=== PATIENT | male | born 1945 | race Caucasian/White ===

== ENCOUNTER 2017-07-08 17:38 | Inpatient (IN) | payer MEDICARE ==
[~2017-07-08] VITALS: Ht 171.4 cm; Wt 86.2 kg
--- NOTE | 2017-07-08 18:07 | Diagnostic Imaging Report ---
PROCEDURE: A single AP view of the chest. COMPARISON: None. INDICATIONS: LEFT SIDE NUMBNESS AND WEAKNESS FINDINGS: Examination is limited by relatively lordotic projection. Lines/tubes: None. Lungs: The lungs are well inflated and clear. There is no evidence of pneumonia or pulmonary edema. Pleura: There is no pleural effusion or pneumothorax. Heart and mediastinum: Mild cardiomegaly. Evidence of prior CABG Bones: No acute bony abnormality. Cervical fusion hardware is visualized. IMPRESSION: Mild cardiomegaly. No evidence of infection or edema. Dictated by: Julius Fong M.D. on 07/08/2017 at 18:07 Electronically approved by: Julius Fong M.D. on 07/08/2017 at 18:07
--- NOTE | 2017-07-08 18:11 | Diagnostic Imaging Report ---
EXAMINATION: Head CT HISTORY: Left-sided numbness and weakness, evaluate for stroke. COMPARISON: None. TECHNIQUE: Multidetector axial images were obtained without contrast from the foramen magnum to the vertex . The images were reconstructed using brain and bone algorithms. Thin section brain images were reformatted into coronal and sagittal planes. Intravenous contrast: None. Motion/streaking artifact limits the evaluation of the skull base and posterior cranial fossa. FINDINGS: Parenchyma: 1. Few scattered and mostly bilateral frontal juxtacortical white matter hypodensities, most likely nonspecific chronic microvascular ischemic changes. 2. No mass or hemorrhage. No CT evidence of acute territorial vascular insult. Extra-axial spaces:No abnormal density. No extra-axial fluid collections Brain volume: Normal for age. Ventricles: No hydrocephalus or displacement. Arteries: No density suggestive of thrombus. Dural sinuses: No abnormal density. Extra-axial spaces: No abnormal density. Foramen magnum: No mass, Chiari malformation, or basilar invagination. Sella: No obvious mass. Paranasal/mastoid sinuses: Imaged portions unremarkable. Skull/Scalp: No lytic or blastic lesions. No fractures. IMPRESSION: 1. No intracranial hemorrhage or CT evidence of acute territorial cortical infarct. 2. Mild chronic microvascular ischemic changes. Signed by: Dr. Lauryn Mckeon M.D. on 07/08/2017 6:07 PM
[2017-07-08 18:18] LABS: BASOPHILS # (AUTO) 0.1 (0.0-0.1); BASOPHILS % 0.7 % (0.0-1.0); EOSINOPHILS # (AUTO) 0.2 (0.0-0.4); HEMATOCRIT 37.9 % (38.2-49.6); HEMOGLOBIN 13.2 g/dL (14.0-18.0); LYMPHOCYTES # (AUTO) 1.4 (1.0-3.2); MEAN CORPUSCULAR HGB CONC 34.8 g/dL (31-35); MONOCYTES # (AUTO) 0.9 (0.2-0.8); MONOCYTES % 10.5 % (4.4-11.3); NEUTROPHILS # (AUTO) 5.5 (2.1-6.9); NEUTROPHILS % 68.4 % (38.7-80.0); PLATELET COUNT 170 x10e3/uL (140-360); RED BLOOD COUNT 4.26 x10e6/uL (4.3-5.7); RED CELL DISTRIBUTION WIDTH 12.6 % (11.7-14.4)
[2017-07-08 18:27] LABS: INR 0.94; PROTHROMBIN TIME 11.8 seconds (11.9-14.5)
[2017-07-08 18:28] LABS: PARTIAL THROMBOPLASTIN TIME 26.9 seconds (23.8-35.5)
[2017-07-08 18:35] LABS: ALANINE AMINOTRANSFERASE 38 IU/L (0-55); ALBUMIN 4.1 g/dL (3.5-5.0); ALBUMIN/GLOBULIN RATIO 1.4 (0.8-2.0); ALKALINE PHOSPHATASE 32 IU/L (40-150); ANION GAP 16.1 mmol/L (8-16); BLOOD UREA NITROGEN 21 mg/dL (7-26); BUN/CREATININE RATIO 18 (6-25); CALCIUM 10.5 mg/dL (8.4-10.2); CARBON DIOXIDE 25 mmol/L (22-29); CHLORIDE 100 mmol/L (98-107); CREATINE KINASE 176 IU/L (30-200); CREATININE, SERUM 1.14 mg/dL (0.72-1.25); EST GLOMERULAR FILTRATION RATE > 60 ML/MIN (60-); GLUCOSE 138 mg/dL (74-118); MAGNESIUM 1.2 MG/DL (1.3-2.1); POTASSIUM 4.1 mmol/L (3.5-5.1); SODIUM 137 mmol/L (136-145)
[2017-07-08] MEDS ORDERED: MAGNESIUM SULFATE 2GM/50ML 50 ML IV ONE (19:15)
[2017-07-08] MEDS ORDERED: DEXTROSE 50% SYRINGE 50 ML IV PRN (19:45)
[2017-07-08] MEDS ORDERED: FAMOTIDINE 20 MG/2 ML VIAL IV SCH (19:45)
[2017-07-08] MEDS ORDERED: SODIUM CHLORIDE 0.9% 500ML 500 ML IV ONE (19:45)
--- OUTSIDE RECORDS SUMMARY | 2017-07-08 19:52 | XMS REPORT ---
Author Author [facility] Address Unknown Phone Unavailable Care Team Providers Care Data Management Engineer Name Role Phone NATALEE SEGOVIA Unavailable Unavailable Problems This patient has no known problems. Allergies, Adverse Reactions, Alerts This patient has no known allergies or adverse reactions. Medications This patient has no known medications. Results Test Description Test Time Test Comments Text Results Atomic Results Result Comments CHEST SINGLE (PORTABLE) [place] [address] Patient Name: THOMPSON CHINCHILLA MR #: [id number] : 1945 Age/Sex: 72/M Req #: [id number] Adm Physician: Ordered by: NATALEE SEGOVIA MD Report #: [id number] Location: ER Room/Bed: Procedure: [id number] DX/CHEST SINGLE (PORTABLE) Exam Date: 07/08/17 Exam Time: 1750 REPORT STATUS: Signed PROCEDURE: A single AP view of the chest. COMPARISON: None. INDICATIONS: LEFT SIDE NUMBNESS AND WEAKNESS FINDINGS: Examination is limited by relatively lordotic projection. Lines/tubes: None. Lungs: The lungs are well inflated and clear. There is no evidence of pneumonia or pulmonary edema. Pleura: There is no pleural effusion or pneumothorax. Heart and mediastinum: Mild cardiomegaly. Evidence of prior CABG Bones: No acute bony abnormality. Cervical fusion hardware is visualized. IMPRESSION: Mild cardiomegaly. No evidence of infection or edema. Dictated by: David Fong M.D. on 07/08/2017 at 18:07 Electronically approved by: David Fong M.D. on 07/08/2017 at 18:07 Dictated By: DAVID FONG MD 07 Transcribed By: ANIL on 07/08/171807 COPY TO: NATALEE SEGOVIA MD CT BRAIN WO [place] [address] Patient Name: THOMPSON CHINCHILLA MR #: [id number] : 1945 Age/Sex: 72/M Req # : [id number] Adm Physician: Ordered by: NATALEE SEGOVIA MD Report #: [id number] Location: ER Room/Bed: Procedure: [id number] CT/CT BRAIN WO Exam Date: 07/08/17 Exam Time: 1756 REPORT STATUS: Signed EXAMINATION: Head CT HISTORY: Left-sided numbness and weakness, evaluate for stroke. COMPARISON: None. TECHNIQUE: Multidetector axial images were obtained without contrast from the foramen magnum to the vertex . The images were reconstructed using brain and bone algorithms. Thin section brain images were reformatted into coronal and sagittal planes. Intravenous contrast: None. Motion/streaking artifact limits the evaluation of the skull base and posterior cranial fossa. FINDINGS: Parenchyma: 1. Few scattered and mostly bilateral frontal juxtacortical white matter hypodensities, most likely nonspecific chronic microvascular ischemic changes. 2. No mass or hemorrhage. No CT evidence of acute territorial vascular insult. Extra-axial spaces:No abnormal density. No extra-axial fluid collections Brain volume: Normal for age. Ventricles: No hydrocephalus or displacement. Arteries: No density suggestive of thrombus. Dural sinuses: No abnormal density. Extra-axial spaces: No abnormal density. Foramen magnum: No mass, Chiari malformation, or basilar invagination. Sella: No obvious mass. Paranasal/mastoid sinuses: Imaged portions unremarkable. Skull/Scalp: No lytic or blastic lesions. No fractures. IMPRESSION: 1. No intracranial hemorrhage or CT evidence of acute territorial cortical infarct. 2. Mild chronic microvascular ischemic changes. Signed by: Dr. Manny Mckeon M.D. on 07/08/2017 6:07 PM Dictated By: MANNY MCKEON MD 06 COPY TO: NATALEE SEGOVIA MD
[2017-07-08 20:00] VITALS: BP 130/62
[2017-07-08] MEDS ORDERED: ENOXAPARIN 30 MG/0.3 ML SYR SC ONE (20:30)
[2017-07-08] MEDS: FAMOTIDINE 20 MG TAB PO SCH (20:32)
[2017-07-08] MEDS: INSULIN REGULAR, HUMAN 100 UNIT/1 ML 3ML VIAL SQ SCH (20:32)
[2017-07-08] MEDS: SODIUM CHLORIDE 0.9% 1000ML 1,000 ML IV SCH ×2 (20:32→22:52)
--- NOTE | 2017-07-08 20:37 | History and Physical ---
Patient states he was experiencing left anterior parasternal pain, which was exacerbated by pressure to the chest wall. He took nitroglycerin. He states associated with these symptoms was left-sided weakness and paresthesias and slurred speech. He came to the emergency room and underwent CT, which revealed some old frontal changes without acute stroke. Symptoms resolved spontaneously in the emergency room, and he is being hospitalized for further observation. The patient denies headache now. He states he had mild headache earlier today after taking nitroglycerin. No current ophthalmological symptoms. He has had prior retinal and lens surgery on the right side. No dysphagia. Speech is clear now per patient. He has chronic neck discomfort with history of old prior C-spine surgery. Denies now chest pain or shortness of breath. History includes severe atherosclerosis with prior coronary artery bypass. He sees Dr. Ayala. History is positive for hyperlipoproteinemia and chronic obesity as well as diabetes mellitus type 2. The patient denies nausea or diaphoresis. No shortness of breath. No GI symptoms. He has a history of BPH and denies current symptoms. The patient has chronic lower back pain. Hyperlipoproteinemia as mentioned. Isivw-na-[id number] meds on most recent visit included :Lexapro 20 mg daily. Klonopin 0.25 mg q.i.d. for chronic anxiety. Metformin 250 mg each morning and 500 mg each evening. Toprol-XL 25 mg daily. Zetia 10 mg daily. Fenofibrate 145 mg daily. Lisinopril 5 mg daily. Lipitor. The patient states the doses vary and that he is uncertain and the medicine has been on hold recently, but last dose was 20 mg daily and LDL 1 year ago was 74, which is too high for this heterogenic patient. The patient also takes aspirin daily. PATIENT STATES HE HAS SEVERE ALLERGIC REACTION TO MORPHINE WITH THROAT TIGHTENING AND SHORTNESS OF BREATH, SEVERE. Surgical history as above. Cervical spine. Coronary artery bypass. Right shoulder. Lumbosacral spine. Vasectomy. Colonoscopy 1998. Bilateral knee joint surgery. Right retina, right lens surgery. Family history is not contributory. CURRENT EXAMINATION: The patient is alert and in no distress. Blood pressure 120/80, pulse is 80 and regular, respiratory rate 16. Pupils round, reactive. EOMs full. No icterus or pallor. Throat clear. Tongue midline. Cranial nerves grossly intact. Pulmonary auscultation clear. Reduced range of motion C-spine and lumbosacral spine and lumbar scar. Abdomen obese. Cardiac sounds S1/S2 soft. Bowel sounds normal. Breath sounds clear. Extremities with dampened pulses and DJD. Strength fair and symmetrical. DTRs reduced. Sensation intact. IMPRESSION: Transient ischemic episode. Rule out associated arrhythmia. Coronary artery disease. Cardiomegaly on chest x-ray, mild. Chronic mood disorder with chronic anxiety. Type 2 diabetes mellitus. Hypertension. Hypertriglyceridemia. Initial calcium level was elevated. See EMR. Case discussed with ER physician. Current plans are to monitor the patient. Control lipids and blood pressure and blood sugar. Further assess vascular status. I have asked the patient's smoking tobacco packing machine hand and neurologist to follow with us. See also initial and followup orders. Job#: [id number] EV
[2017-07-08] MEDS: CLONAZEPAM 0.5 MG TAB PO SCH (20:46)
[2017-07-08 22:10] VITALS: BP 130/58
[2017-07-08 22:15] VITALS: BP 130/60
[2017-07-08 22:52] VITALS: BP 130/58
[2017-07-09] VITALS: BP 130/60
[2017-07-09 03:49] LABS: CREATINE KINASE MB 2.7 ng/mL (0-5.0)
[2017-07-09 04:00] VITALS: BP 143/63
[2017-07-09 07:26] LABS: BASOPHILS % 0.7 % (0.0-1.0); EOSINOPHILS # (AUTO) 0.2 (0.0-0.4); EOSINOPHILS % 5.4 % (0.0-6.0); HEMATOCRIT 35.6 % (38.2-49.6); HEMOGLOBIN 12.3 g/dL (14.0-18.0); LYMPHOCYTES % 22.5 % (18.0-39.1); MEAN CORPUSCULAR HEMOGLOBIN 31.6 pg (28-32); MEAN CORPUSCULAR HGB CONC 34.6 g/dL (31-35); MEAN CORPUSCULAR VOLUME 91.5 fL (81-99); MONOCYTES # (AUTO) 0.5 (0.2-0.8); MONOCYTES % 12.1 % (4.4-11.3); NEUTROPHILS # (AUTO) 2.7 (2.1-6.9); NEUTROPHILS % 59.1 % (38.7-80.0); PLATELET COUNT 123 x10e3/uL (140-360); RED BLOOD COUNT 3.89 x10e6/uL (4.3-5.7); RED CELL DISTRIBUTION WIDTH 12.6 % (11.7-14.4)
[2017-07-09] MEDS: INSULIN REGULAR, HUMAN 100 UNIT/1 ML 3ML VIAL SQ SCH ×4 (07:30→20:17)
[2017-07-09 07:37] VITALS: BP 150/67
[2017-07-09 07:49] LABS: CREATINE KINASE MB 2.9 ng/mL (0-5.0)
[2017-07-09 08:04] LABS: ALANINE AMINOTRANSFERASE 33 IU/L (0-55); ALBUMIN 3.6 g/dL (3.5-5.0); ALBUMIN/GLOBULIN RATIO 1.3 (0.8-2.0); ALKALINE PHOSPHATASE 31 IU/L (40-150); ANION GAP 12.4 mmol/L (8-16); BLOOD UREA NITROGEN 17 mg/dL (7-26); BUN/CREATININE RATIO 17 (6-25); CALCIUM 9.1 mg/dL (8.4-10.2); CARBON DIOXIDE 27 mmol/L (22-29); CHLORIDE 105 mmol/L (98-107); CHOL/HDL RATIO 5.3 (3.9-4.7); CHOLESTEROL 132 MD/DL (0-199); CREATININE, SERUM 1.03 mg/dL (0.72-1.25); EST GLOMERULAR FILTRATION RATE > 60 ML/MIN (60-); GLUCOSE 133 mg/dL (74-118); HDL CHOLESTEROL 25 MG/DL (40-60); LDL CHOLESTEROL 35 MG/DL (60-130); MAGNESIUM 1.5 MG/DL (1.3-2.1); POTASSIUM 4.4 mmol/L (3.5-5.1); SODIUM 140 mmol/L (136-145); TRIGLYCERIDES 358 MG/DL (0-149)
[2017-07-09] MEDS: CITALOPRAM HYDROBROMIDE 20 MG TAB PO SCH (09:00)
[2017-07-09] MEDS: EZETIMIBE 10 MG TAB PO SCH (09:00)
[2017-07-09] MEDS: LISINOPRIL 2.5 MG TAB PO SCH (09:00)
[2017-07-09] MEDS: FAMOTIDINE 20 MG TAB PO SCH (09:00)
[2017-07-09] MEDS: CLONAZEPAM 0.5 MG TAB PO SCH ×4 (09:00→20:31)
[2017-07-09] MEDS: ASPIRIN 325 MG TAB EC PO SCH (09:00)
[2017-07-09] MEDS: FENOFIBRATE 145 MG TAB PO SCH (09:00)
[2017-07-09 12:10] VITALS: BP 150/67
--- NOTE | 2017-07-09 12:19 | Cardiology Report ---
DATE OF STUDY: July 08, 2017 ECHOCARDIOGRAM M-MODE: Dilated left atrium. Left ventricular hypertrophy. Diminished left ventricular contractility, especially at inferior wall. Normal mitral aortic valves. No pericardial effusion. SECTOR SCAN: Dilated left atrium. Left ventricular hypertrophy. Diminished left ventricular contractility, especially the inferior wall. Ejection fraction is approximately 35% to 40%. Mitral, aortic and tricuspid valves are grossly normal. There is no pericardial effusion. CARDIAC DOPPLER STUDY WITH COLOR: There is 1+ to 2+ aortic regurgitation, 1+ mitral regurgitation. Trace tricuspid regurgitation. CONCLUSIONS: 1. Inferior hypokinesis suggestive of ischemic heart disease. 2. Left ventricular hypertrophy with ejection fraction 35% to 40%. 3. Mild to moderate aortic regurgitation. 4. Mild mitral regurgitation with dilated left atrium. 5. Trace tricuspid regurgitation. Job#: [id number] GH cc:MACY RODRIGUEZ MD
--- NOTE | 2017-07-09 12:23 | Cardiology Report ---
DATE OF STUDY: July 08, 2017 DOPPLER SCAN OF THE CAROTID The left and right carotid arteries were interrogated using Duplex scanning method. The left carotid artery showed velocity of 2.1 meters per second involving the distal left internal carotid artery. Left vertebral flow appears to be antegrade. Right carotid artery shows mild intimal thickening and plaquing without high-grade stenosis or flow impairment. Right vertebral flow appears to be antegrade. CONCLUSIONS: 1. Moderately high-grade stenosis involving the distal left internal carotid artery with velocity of 2.1 meters per second consistent with stenosis in the range of 70% to 80%. 2. Mild intimal thickening and plaquing bilaterally with moderate plaques noted in the right internal carotid artery. 3. Vertebral flow appears to be in normal direction bilaterally. Job#: [id number] GH cc:MACY RODRIGUEZ MD
--- NOTE | 2017-07-09 12:28 | Diagnostic Imaging Report ---
History: Left arm numbness, left face double vision. Comparison studies: Head CT 07/08/17 Technique: Sagittal T2; axial DWI, FLAIR, MPGR, T1, Coronal FLAIR. Intravenous contrast: None Findings: Scalp: Normal in signal . No masses . Bone marrow: Normal in signal intensity. Extra-axial: No masses or fluid collections. Brain sulci: Appropriate for age. Ventricles: Normal in size . No hydrocephalus . Parenchyma: Mild confluent and scattered foci of T2 FLAIR hyperintensity in the periventricular, deep and subcortical cerebral white matter are mild chronic small vessel ischemic changes. No masses, hemorrhage, acute or chronic cortical ischemic insults. Suprasellar region: No abnormalities. Craniocervical junction: No abnormalities. Patent foramen magnum. No Chiari one malformation. Vessels: Normal flow-voids in the arteries and sinuses. IMPRESSION: 1. No acute intracranial abnormality. No acute infarct, intracranial hemorrhage or mass effect. 2. Mild chronic small vessel ischemic changes. Preliminary report was provided by neuroradiology fellow, Dr.Thach Chanel MD on 07/09/2017 12:27 PM. The preliminary report was reviewed and a final report issued by Dr. Mckeon neuroradiologist on 07/09/2017 at 4:41 PM Signed by: Dr. Lauryn Mckeon M.D. on 07/09/2017 4:42 PM
--- NOTE | 2017-07-09 12:40 | Diagnostic Imaging Report ---
History: Left arm numbness, left face numbness, double vision. Comparison studies: None Technique: 3-D [id number] intracranial. Contrast: None Findings: Percentage of stenosis will be based on the NASCET criteria. Internal carotid arteries: No flow abnormalities. Vertebral arteries: No flow abnormalities in the visualized intracranial segments. Basilar artery: No flow abnormalities. Posterior cerebral arteries: No flow abnormalities. Anatomical variants: Acom: Visualized. Pcoms: Not visualized. Vertebral arteries: Right vertebral artery is dominant and supplies the majority of flow to the basilar artery. 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 IMPRESSION: Normal MR angiogram of the head. Preliminary report was provided by neuroradiology fellow, Dr.Thach Chanel MD on 07/09/2017 12:39 PM. The preliminary report was reviewed and a final report issued by Dr. Mckeon neuroradiologist on 07/09/2017 at 4:50 PM Signed by: Dr. Lauryn Mckeon M.D. on 07/09/2017 4:49 PM
--- NOTE | 2017-07-09 12:58 | Diagnostic Imaging Report ---
History: Left side weakness. Comparison studies: Carotid ultrasound 07/09/2017 Technique: 2-D mpfy-fj-cfenup cervical. Contrast: None Findings: Aortic arch/origins of the great vessels: Cannot be evaluated in this unenhanced study. Common carotid arteries: Origins obscured by artifacts. No gross flow abnormalities . Right carotid bulb: No flow abnormalities. Left carotid bulb: No flow abnormalities. Internal carotid arteries: No flow abnormality in the right ICA. Apparent focal high-grade stenosis in the proximal left internal carotid artery immediately distal to the origin seen on the MIPS images is most likely related to flow artifact secondary to vessel tortuosity. Remaining segments of the distal left cervical ICA have normal flow related signal. Vertebral arteries: Origins obscured by artifacts. No gross flow abnormalities. Right vertebral artery is dominant. IMPRESSION: Apparent focal high-grade stenosis in the left carotid bulb seen on the MIPS reconstruction is most likely flow related artifact secondary to vessel tortuosity and horizontal orientation. No abnormal velocity is seen in this region on the recent carotid ultrasound to suggest true hemodynamically significant stenosis. Otherwise, normal cervical MRA. Preliminary report was provided by neuroradiology fellow, Dr.Thach Chanel MD on 07/09/2017 12:57 PM. Signed by: Dr. Lauryn Mckeon M.D. on 07/09/2017 4:36 PM
[2017-07-09 16:01] VITALS: BP 132/62
--- NOTE | 2017-07-09 16:38 | Consultation ---
DATE OF CONSULTATION: CARDIOLOGY CONSULTATION ATTENDING PHYSICIAN: Dr. Macy Rodriguez. CLINICAL HISTORY: This is a 72-year-old white man with multiple medical problems, known to our service from previous evaluations by Dr. Howard Ayala, kindly referred by Dr. Macy Rodriguez for cardiovascular evaluation in the setting of chest wall tenderness, new TIA with transient left-sided weakness including the left face. This patient suffers from diabetes, hypertension, hyperlipidemia. In 1994 he had an acute myocardial infarction. In 1996 he underwent bypass surgery. He also has a history of spinal cord disease including a previous surgery on the C-spine in 2007 and previous lumbar surgery. Approximately 5 years ago, he presented with right-sided weakness and aphasia, which has mostly recovered but with persistent right foot numbness. He has been followed by Dr. Dale Quintanilla at that time. He had a cardiac catheterization approximately 6 years ago by his verbal report, and the nuclear stress test 2 years ago apparently not finding any significant disease. On the day of admission, he felt left-sided chest pain and tenderness, took nitroglycerin spray. His symptoms resolved in 5 minutes. Subsequently, he had a transient ischemic attack with left-sided weakness, dysarthria that resolved in [address] scan and MRI scan failed to show any acute changes. Echocardiogram showed ejection fraction of 35% to 40% with inferior wall hypokinesis, dilated left atrium, and Doppler scan of the carotids showed velocity of 2.1 meters per second in the distal left internal carotid artery. PAST MEDICAL HISTORY: Remarkable for the above-mentioned surgeries. Additionally, he has had vasectomy, colonoscopy, bilateral knee surgery, right retinal surgery, right lens surgery. MEDICATIONS AT HOME: Include 1. Metformin 250 mg b.i.d. 2. Toprol-XL 25 mg p.o. daily. 3. Zetia 10 mg p.o. daily. 4. Fenofibrate 145 mg daily. 5. Lisinopril 5 mg daily. 6. Lipitor daily. FAMILY HISTORY: Noncontributory. REVIEW OF SYSTEMS: Negative. PHYSICAL EXAMINATION GENERAL: He is alert, coherent. Appears to be comfortable without any obvious deficits. He is poor of hearing. VITAL SIGNS: Stable. CARDIAC: Jugular veins are not distended. S1 and S2 are regular. There are no appreciable murmurs. LUNGS: Clear. ABDOMEN: Soft. Bowel sounds are present. EXTREMITIES: Show no cyanosis, clubbing or edema. NEUROLOGIC: He is able to walk without any obvious deficits. IMPRESSION 1. Transient ischemic attack with left-sided weakness including left face, resolved after 45 minutes. Since he has had previous stroke 5 years ago involving the opposite side, I suspect his condition may be embolic rather than related to carotid artery disease. In any case, the left carotid artery stenosis is on the wrong side. 2. Approximately 70% to 80% stenosis involving the left internal carotid artery with velocity 2.1 meters per second. 3. Previous cerebrovascular accident involving the left hemisphere with right-sided weakness and aphasia with residual right foot numbness. 4. History of cervical spine surgery 2007. 5. History of lumbar surgery. 6. History of myocardial infarction probably of the inferior wall in 1994. 7. History of bypass surgery in 1996. 8. Diabetes. 9. Hypertension. 10. Hyperlipidemia. 11. Depression, on Lexapro. RECOMMENDATION: Review old records. Neurology evaluation. Consider MRA of the head. Consider transesophageal echocardiogram. Consider anticoagulation. Job#: [id number] EV cc:MACY RODRIGUEZ MD
[2017-07-09] MEDS: SODIUM CHLORIDE 0.9% 1000ML 1,000 ML IV SCH ×2 (18:15→20:32)
[2017-07-09 20:00] VITALS: BP 134/62
[2017-07-09] MEDS: ENOXAPARIN SOD INJ 60 MG/0.6 ML SYR SC SCH (20:31)
--- NOTE | 2017-07-09 21:27 | Consultation ---
DATE OF CONSULTATION: July 09, 2017 NEUROLOGY CONSULTATION HISTORY OF PRESENT ILLNESS: Mr. Begum is a 72-year-old sdyqg-foed-slxjpkqy man with past medical history significant for hyperlipidemia, diabetes mellitus, coronary artery disease, possible atrial fibrillation with rapid ventricular response, and 2 prior transient ischemic attacks, admitted to [facility] on July 08, 2017, following a transient ischemic attack. On the day of admission, the patient was sitting in his recliner, reading a book, when he experienced the sudden onset of left facial droop, left hemiparesis, left hemihypesthesia, gait impairment, and dizziness which is further described as lightheadedness. The patient's , who witnessed the onset of these symptoms, wanted to call --1, but her refused. Therefore, the patient's placed Mr. Begum in her car and drove him to the emergency center at [facility] for further evaluation and treatment. While in the emergency center, the patient's symptoms gradually improved. Mr. Begum and his report the symptoms fully resolved within 60 to 90 minutes after the time of onset. A CT of the brain without contrast performed while the patient was in the emergency center did not reveal large territorial ischemia, hemorrhage, mass, or mass effect. Mr. Begum was admitted to the hospital for further evaluation and treatment of his symptoms. As stated above, the patient has experienced at least 2 previous transient ischemic attacks. One of these transient ischemic attacks was characterized by aphasia. Mr. Begum reports taking aspirin 81 mg by mouth daily prior to this admission. REVIEW OF SYSTEMS: Abdominal pain, blurred vision affecting the left eye, facial weakness and numbness, weakness of the left arm and leg, numbness of the left arm and leg, and impaired gait. Otherwise, the 12-point review of systems is negative. PAST MEDICAL HISTORY: Hyperlipidemia, diabetes mellitus, coronary artery disease, prior heart attack, possible atrial fibrillation with rapid ventricular response, 2 transient ischemic attacks, skin cancer. PAST SURGICAL HISTORY: Four-vessel CABG in 1996, cervical and lumbar fusions, cardiac stent placement, bilateral partial knee replacements, bilateral shoulder reconstructions, 6 eye surgeries, resection of basal cell carcinoma. PAST HOSPITALIZATIONS: Surgeries and procedures listed, heart attack, cardiac catheterizations, transient ischemic attacks twice, chest pain, upper respiratory infection, and heat stroke. FAMILY HISTORY: Mr. Begum's paternal and maternal grandparents are . Their medical histories are unknown. The patient's father is from coronary artery disease. A paternal aunt had diabetes mellitus. A paternal uncle had coronary artery disease. A 2nd paternal aunt had an unknown cancer. The patient's mother is , cause unknown. The patient has 1 sibling, a sister, who is alive. She has celiac disease and lactose intolerance. The patient has 2 children. One son in his sleep. It is suspected the patient's son from a seizure caused by medication interaction. The patient has a 2nd son who is alive and healthy. SOCIAL HISTORY: The patient is . He is retired. Mr. Begum quit smoking in 1994. He drinks an occasional beer or glass of wine. There is no reported current or prior recreational drug use. HOME MEDICATIONS: Lexapro 20 mg by mouth daily, Klonopin 0.25 mg by mouth 4 times daily for chronic anxiety, metformin 250 mg in the morning and 500 mg in the evening, Toprol-XL 25 mg daily, Zetia 10 mg daily, fenofibrate 145 mg daily, lisinopril 5 mg daily, and Lipitor 20 mg by mouth daily. ALLERGIES: MORPHINE CAUSES ANAPHYLAXIS. PENICILLIN CAUSES A RASH. TAPE ADHESIVE. NO KNOWN FOOD ALLERGIES. NO KNOWN ALLERGIES TO LATEX. NO KNOWN ALLERGIES TO IODINE OR OTHER CONTRAST MATERIALS. PHYSICAL EXAMINATION VITAL SIGNS: Height 67.5 inches, weight 190.1 pounds, BMI 29.3 kg per meter squared. Blood pressure 150/67 mmHg, pulse 58 beats per minute, respiratory rate 18 breaths per minute, oxygen saturation 94% on room air. GENERAL: The patient is awake and alert, does not appear distressed. Overweight. HEENT: Normocephalic, atraumatic. Pupils are surgical. Moist mucous membranes. NECK: Supple. No appreciable thyromegaly. No appreciable carotid bruits. CARDIOVASCULAR: S1, S2, regular rate and rhythm. No murmurs, rubs, or gallops. RESPIRATORY: Clear to auscultation bilaterally. No wheezes, rhonchi, or rales. EXTREMITIES: The skin is warm and dry. No clubbing, cyanosis, or edema. The posterior tibial and dorsalis pedis pulses are 1+ and symmetric. SKIN: No rashes or lesions. NEUROLOGIC MEMORY/ATTENTION: The patient is awake and alert, oriented to person, place, time, and situation. CRANIAL NERVES: Cranial nerve 1--Not tested. Cranial nerve 2, 3, 4, and 6--Pupils are surgical, extraocular movements intact, no nystagmus. Cranial nerve 5--Sensation to light touch and pinprick is intact in the bilateral V1 through V3 distributions. Strength of the temporalis and masseter muscles is within normal limits. Cranial nerve 7--The face is symmetric, as are all facial movements. Strength is within normal limits. Cranial nerve 8--Hearing is diminished to finger rub bilaterally. Cranial nerve 9, 10--The soft palate elevates equally and symmetrically. Cranial nerve 11--Normal strength of the bilateral sternocleidomastoid and trapezius muscles. Cranial nerve 12--The tongue protrudes midline and moves symmetrically from side to side. STRENGTH: Bulk is normal, and strength is 5/5 in the bilateral deltoids, biceps, triceps, wrist flexors and extensors, finger flexors and extensors, intrinsic hand muscles, hip flexors, knee flexors and extensors, ankle dorsiflexion and plantarflexion, and intrinsic foot muscles. Tone is normal. DTRS: Deep tendon reflexes are 2+ and symmetric at the triceps, biceps, brachial radialis, and patellas. Deep tendon reflexes are absent and symmetric at the Achilles. Plantar responses are flexor bilaterally. Absent clonus. SENSATION: Patchy sensory loss to light touch and pinprick over the legs. CEREBELLAR: Gwfbgr-beii-lstrif and heel-garrison movements are intact without dysmetria or other impairment. Rapid alternating movements are intact. GAIT: Deferred. SPEECH: Spontaneous speech is normal without appreciable dysarthria or aphasia. Repetition is intact. INVOLUNTARY MOVEMENTS: None. PRONATOR DRIFT: None. LABORATORY DATA: Sodium 140, potassium 4.4, chloride 105, carbon dioxide 27, anion gap 12.4, BUN 17, creatinine 1.03, estimated GFR greater than 60, TAG-ci-ajyszrstix ratio 17, glucose 133, calcium 9.1, magnesium 1.5. Total bilirubin 0.3, AST 25, ALT 33, alkaline phosphatase 31. Total protein 6.3, albumin 3.6, globulin 2.7, wgqlato-bc-wcfhtbmy ratio 1.3. Creatine kinase 176, 133, 130. CK-MB 3.50, 2.70, 2.90. Troponin I less than 0.001, 0.007, 0.005. TSH 2.470. B-natriuretic peptide 38.3, 39.4. Total cholesterol 132, triglycerides 358, LDL 35, HDL 25. CBC with differential and platelets reveals a white blood cell count of 4.48 with 59.1% neutrophils, 22.5% lymphocytes, 12.1% monocytes, 5.4% eosinophils, 0.7% basophils. PT 11.8, INR 0.94, PTT 26.9. DIAGNOSTIC STUDIES EKG July 08, 2017: Normal sinus rhythm at [address] of the brain without contrast July 08, 2017: On my review, there is no evidence of recent large territorial ischemia, hemorrhage, mass, or mass effect. MRI of the brain without contrast July 08, 2017: On my review, there is no evidence of recent large territorial ischemia, hemorrhage, mass, or mass effect. Nonspecific scattered T2/FLAIR hyperintensities are compatible with mild to moderate chronic small-vessel ischemic disease. MRA of the brain and neck July 08, 2017: Normal intracranial MRA. Focal high-grade stenosis in the proximal left internal carotid artery is most likely flow-related artefact secondary to vessel tortuosity. No abnormal velocity is seen in this region on the recent carotid ultrasound to suggest true hemodynamically significant stenosis. Otherwise, normal cervical MRA. Bilateral carotid artery ultrasound with Doppler July 08, 2017: Moderately high-grade stenosis involving the distal left internal carotid artery with velocity of 2.1 meters per second, consistent with stenosis in the range of 70% to 80%. Mild intimal thickening and plaquing bilaterally with moderate plaques noted in the right internal carotid artery. Vertebral flow appears to be in normal direction bilaterally. Echocardiogram July 08, 2017: Left ventricular systolic function is impaired with an estimated ejection fraction of 40% to 45%. There is concentric left ventricular hypertrophy, left ventricular enlargement, and left atrial enlargement. Mild aortic insufficiency and tricuspid regurgitation. ASSESSMENT AND PLAN: Mr. Begum is a 72-year-old urkeo-abhi-sqizttoc man with an extensive past medical history, admitted to [facility] on July 08, 2017, with a transient ischemic attack. At present, the patient's neurological examination is nonfocal with the exception of patchy sensory loss to light touch and pinprick in the bilateral lower extremities, not in an anatomical distribution. The patient's laboratory data and diagnostic studies have been reviewed and detailed above. Mr. Begum has undergone a complete stroke evaluation in the setting of his recent transient ischemic attack. Recommendations are as follows: 1. I spoke with the geographic analyst, Dr. Raghavendra Murray, who evaluated the patient earlier today. He is of the opinion Mr. Begum requires anticoagulation for further stroke prophylaxis. He has prescribed Lovenox 60 mg subcutaneously twice daily. Dr. Murray has deferred recommendation of further anticoagulation to the patient's geographic analyst, Dr. Ayala. 2. The patient's goal blood pressure is less than 140/90 mmHg. Mr. Begum's blood pressures are mildly elevated at present. May begin to normalize blood pressure tomorrow, July 10, 2017. 3. The patient's goal total cholesterol is less than 200 with an LDL of less than 70. Continue current cholesterol-lowering medications. 4. The patient's goal hemoglobin A1c is less than 7.0. The patient's hemoglobin A1c is 6.5. Continue with current medications. Tight glycemic control is recommended. 5. Mr. Begum is taking Pepcid for GI prophylaxis. He is receiving therapeutic Lovenox for DVT prophylaxis. 6. Physical Therapy has seen the patient. The patient has no physical therapy needs. Speech Therapy was not consulted. Mr. Begum has no needs in regards to his speech or swallowing. 7. Defer treatment of the remaining medical comorbidities to the primary and other services. Thank you for the consultation. I will continue to follow this patient while he remains in the hospital. Time spent: 50 minutes. Job#: [id number] EV MTDD
[2017-07-09] MEDS ORDERED: MECLIZINE HCL 12.5 MG TAB PO PRN (21:30)
[2017-07-09] MEDS ORDERED: ASPIRIN 81 MG CHEW TAB PO ONE (21:30)
[2017-07-10] VITALS (7 sets, daily range): BP systolic 136–161; BP diastolic 60–88
[2017-07-10 02:08] LABS: CREATINE KINASE MB 2.7 ng/mL (0-5.0)
[2017-07-10] MEDS: SODIUM CHLORIDE 0.9% 1000ML 1,000 ML IV SCH ×2 (06:13→21:55)
[2017-07-10] MEDS: CITALOPRAM HYDROBROMIDE 20 MG TAB PO SCH (09:20)
[2017-07-10] MEDS: FAMOTIDINE 20 MG TAB PO SCH (09:20)
[2017-07-10] MEDS: EZETIMIBE 10 MG TAB PO SCH (09:20)
[2017-07-10] MEDS: LISINOPRIL 2.5 MG TAB PO SCH (09:20)
[2017-07-10] MEDS: CLONAZEPAM 0.5 MG TAB PO SCH ×4 (09:20→21:30)
[2017-07-10] MEDS: FENOFIBRATE 145 MG TAB PO SCH (09:20)
[2017-07-10] MEDS: ASPIRIN 325 MG TAB EC PO SCH (09:20)
[2017-07-10] MEDS: ENOXAPARIN SOD INJ 60 MG/0.6 ML SYR SC SCH ×2 (09:21→21:30)
[2017-07-10] MEDS: INSULIN REGULAR, HUMAN 100 UNIT/1 ML 3ML VIAL SQ SCH ×4 (09:31→21:32)
[2017-07-10] MEDS: HYDROCORTISONE ACETATE 25 MG/SUPP.RECT SUPP RC SCH ×5 (11:30→21:33)
[2017-07-10] MEDS ORDERED: DOCUSATE SODIUM 100 MG CAP PO ONE (12:00)
[2017-07-10] MEDS: DOCUSATE SODIUM 100 MG CAP PO SCH (16:52)
[2017-07-11] VITALS: BP 149/68
[2017-07-11 04:00] VITALS: BP 147/68
[2017-07-11] MEDS: INSULIN REGULAR, HUMAN 100 UNIT/1 ML 3ML VIAL SQ SCH ×2 (07:30→12:10)
[2017-07-11 07:36] VITALS: BP 162/73
[2017-07-11] MEDS: SODIUM CHLORIDE 0.9% 1000ML 1,000 ML IV SCH (07:45)
[2017-07-11] MEDS: ASPIRIN 325 MG TAB EC PO SCH (08:46)
[2017-07-11] MEDS: DOCUSATE SODIUM 100 MG CAP PO SCH (08:47)
[2017-07-11] MEDS: LISINOPRIL 2.5 MG TAB PO SCH (08:47)
[2017-07-11] MEDS: ENOXAPARIN SOD INJ 60 MG/0.6 ML SYR SC SCH (08:47)
[2017-07-11] MEDS: FENOFIBRATE 145 MG TAB PO SCH (08:47)
[2017-07-11] MEDS: EZETIMIBE 10 MG TAB PO SCH (08:47)
[2017-07-11] MEDS: FAMOTIDINE 20 MG TAB PO SCH (08:47)
[2017-07-11] MEDS: CLONAZEPAM 0.5 MG TAB PO SCH ×2 (08:47→12:10)
[2017-07-11] MEDS: CITALOPRAM HYDROBROMIDE 20 MG TAB PO SCH (08:47)
[2017-07-11 08:53] VITALS: BP 162/73
[2017-07-11 11:45] VITALS: BP 142/64
[2017-07-11] MEDS ORDERED: METOPROLOL SUCCINATE 25 MG TAB XL PO SCH (12:00)
[2017-07-11] MEDS ORDERED: ASPIRIN ENTERI325 MG PO (14:40)
--- NOTE | 2017-07-11 18:47 | Discharge Summary ---
The patient was admitted with symptoms of transient ischemic attack involving the left side and left face with facial drooping and speech slurring, which resolved after arrival in the emergency room. He was reassessed. His preexisting medical difficulties were monitored and treated, including hypertension and diabetes. The patient was kindly reassessed by consultants in neurology (Dr. Mathew) and his cardiologists (Drs. Ayala and Terri), see consultations. Patient had 2 recurrences of paresthesias while here, once on the and once on the . On the final day of the hospitalization, the patient vehemently declined further stay. See also electronic medical record. Admission CBC and followup CBC normal. INR 0.94, PTT 26.9 normal. RPR nonreactive. Protein electrophoresis pending. Blood sugars monitored and treated. Cardiac enzymes negative. LDL 35, triglyceride 358 elevated. The patient was counseled again regarding appropriate diet for diabetes and hypertriglyceridemia. He was also counseled regarding avoidance of saturated fats. Natriuretic peptide was 39.4. Admission calcium was 10.5, ER July 08. Repeat calcium was 9.1, normal on July 09. TSH normal at 2.4. A1c 6.5. Admission chest x-ray, mild cardiomegaly. Admission ER head CT, mild chronic microvascular ischemic changes. Neck MRA initially read as focal high-grade stenosis left carotid bulb most likely artefact per radiologist, Dr. Lauryn Mckeon. 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 Impression of Dr. Mckeon was normal MR angiogram of the head. Brain MRI, no acute abnormality. Small-vessel ischemic changes. Scattered foci of T2/FLAIR hyperintensity in the periventricular, deep and subcortical cerebral white matter "or mild chronic ischemic changes." Carotid Doppler scan, distal internal with 70% to 80% stenosis. Interestingly, the patient's difficulties were on the left side of his extremities and face. Telemetry revealed persistent sinus rhythm while here throughout stay. Occasional sinus bradycardia to 50. See also consultation per neurology trial consultant as above recommending conservative care. See cardiology consultation from Dr. Murray, "consider RAUL," consider anticoagulation. Dr. Murray's associate, Dr. Ayala, recommended patient not be further anticoagulated and told the patient he could go home on aspirin, according to the patient. The patient also related to staff he was discharged by his neurologist. He will resume wercc-no-ajrzpcflg regimen. He was asked to follow up closely. All of the findings were given to the patient serially. FINAL IMPRESSION 1. Transient ischemic attacks. Carotid Doppler scan and MRA neck, stenosis 70% to 80% left internal carotid. Conservative treatment recommended by consulting neurologist and cardiologists. 2. Chronic medical illnesses including: Chronic type 2 diabetes mellitus, controlled. Hyperlipoproteinemia. Coronary artery disease. Chronic mood disorder. Chronic anxiety. Primary hypertension. MACY RODRIGUEZ MD Job#: [id number] EV MTDD
== END 2017-07-11 14:53 | disposition home or self-care (01) | DRG 69 ==
LOC: ER 17:38 → ERHOLD 19:50 → MED/SURG 21:27
PROVIDERS: ADMIT Internal Medicine; ATTEND Internal Medicine
DX: G45.9 Transient cerebral ischemic attack, unspecified (principal); I50.22 Chronic systolic (congestive) heart failure; I69.351 Hemiplegia and hemiparesis following cerebral infarction affecting right dominant side; I25.10 Atherosclerotic heart disease of native coronary artery without angina pectoris; F41.9 Anxiety disorder, unspecified; E78.1 Pure hyperglyceridemia; I11.0 Hypertensive heart disease with heart failure; I69.320 Aphasia following cerebral infarction; I25.2 Old myocardial infarction; E78.5 Hyperlipidemia, unspecified; F32.9 Major depressive disorder, single episode, unspecified; E11.9 Type 2 diabetes mellitus without complications; Z88.5 Allergy status to narcotic agent; Z88.0 Allergy status to penicillin; Z91.048 Other nonmedicinal substance allergy status; Z95.1 Presence of aortocoronary bypass graft; F39 Unspecified mood [affective] disorder; Z83.3 Family history of diabetes mellitus; Z82.49 Family history of ischemic heart disease and other diseases of the circulatory system; Z87.891 Personal history of nicotine dependence; R07.89 Other chest pain; I65.22 Occlusion and stenosis of left carotid artery
CPT/HCPCS: 36415; 70450; 70544; 70547; 70551; 71045; 80053; 80061; 82550; 82553; 82948; 83036; 83735; 83880; 84165; 84443; 84484; 85025; 85610; 85730; 86592; 93005; 93306; 93880; 97139; 99284; J1650; J7030; J7040

== ENCOUNTER → 2017-07-26 | Outpatient (CLI) | payer MEDICARE ==
[~2017-07-26] MED LIST: ASPIRIN ENTERI325 MG PO
--- NOTE | 2017-07-26 10:52 | Diagnostic Imaging Report ---
History: Radiculopathy Comparison studies: None Technique: Sagittal T1, T2 and IR, axial T2 and axial gradient echo Intravenous contrast: None Findings: Alignment: Straightening of the normal lordosis. No scoliosis. Cervicomedullary junction: No abnormalities. Patent foramen magnum. Soft tissues: No T2 hyperintense inflammatory changes. Spinal cord: Normal in size and signal from the foramen magnum through T4. Anterior and intervertebral fusion with plate, screws and spacer at C5-6 Vertebrae: Normal in height and signal intensity. No fractures, infection or neoplasm. Degenerative changes: C2-C3: Disc degeneration with loss of T2 signal. Small central disc osteophyte complex with patent canal and foramina C3-C4: Disc degeneration with loss of T2 signal. Asymmetric left disc osteophyte complex, left uncinate process hypertrophy results in mild canal stenosis and moderate left foraminal narrowing C4-C5: Disc degeneration with loss of T2 signal. Diffuse disc osteophyte complex, bilateral uncinate process and facet hypertrophy results in mild canal stenosis, mild right and moderate left foraminal narrowing C5-C6: Fused intervertebral space with intervertebral spacer. Bilateral uncinate process hypertrophy with patent canal and mild left foraminal narrowing C6-C7: Disc degeneration with loss of T2 signal. Diffuse disc osteophyte complex and bilateral uncinate process hypertrophy results in no significant canal stenosis and mild bilateral foraminal narrowing C7-T1: Patent canal and foramina. IMPRESSION: 1. Anterior fusion of the cervical spine at C5-6 without evidence of complication. 2. Moderate degenerative left foraminal narrowing at C3-4 and C4-5. Other degenerative changes results in multilevel mild canal stenosis and foraminal narrowing as described above. Signed by: DR Adama Bender M.D. on 07/26/2017 10:48 AM
== END ==
LOC: MRI 08:28
PROVIDERS: ATTEND Internal Medicine
DX: M54.12 Radiculopathy, cervical region (principal)
CPT/HCPCS: 72141

== ENCOUNTER 2018-02-15 15:29 | Emergency (ER) | payer MEDICARE ==
[~2018-02-15] VITALS: Ht 171.4 cm; Wt 86.2 kg
[2018-02-15] MEDS ORDERED: TRAMADOL HCL 50 MG TAB PO ONE (16:00)
[2018-02-15 16:48] LABS: BASOPHILS # (AUTO) 0.1 (0.0-0.1); BASOPHILS % 0.6 % (0.0-1.0); EOSINOPHILS # (AUTO) 0.2 (0.0-0.4); EOSINOPHILS % 2.5 % (0.0-6.0); HEMATOCRIT 43.3 % (38.2-49.6); HEMOGLOBIN 14.9 g/dL (14.0-18.0); LYMPHOCYTES # (AUTO) 1.3 (1.0-3.2); LYMPHOCYTES % 15.2 % (18.0-39.1); MEAN CORPUSCULAR HEMOGLOBIN 31.1 pg (28-32); MEAN CORPUSCULAR HGB CONC 34.4 g/dL (31-35); MEAN CORPUSCULAR VOLUME 90.4 fL (81-99); MONOCYTES % 12.3 % (4.4-11.3); NEUTROPHILS # (AUTO) 5.7 (2.1-6.9); PLATELET COUNT 166 x10e3/uL (140-360); RED BLOOD COUNT 4.79 x10e6/uL (4.3-5.7); RED CELL DISTRIBUTION WIDTH 12.5 % (11.7-14.4)
--- NOTE | 2018-02-15 16:53 | Diagnostic Imaging Report ---
Exam: Noncontrast head CT History:Left-sided numbness and right-sided head and neck pain Comparison studies: Cervical spine MRI dated 07/26/2017 and brain MRI dated 07/09/2017 Technique: Axial images were obtained from the skull base to the vertex. Coronal and sagittal images reconstructed from the axial data. Dose modulation, iterative reconstruction, and/or weight based adjustment of the mA/kV was utilized to reduce the radiation dose to as low as reasonably achievable. Intravenous contrast: None Findings: Scalp/skull: No abnormalities. Extra-axial spaces: No masses. No fluid collections. Brain sulci: Mildly prominent. Ventricles: Mild compensatory dilatation. No hydrocephalus. Parenchyma: Minimal subcortical and periventricular hypodensities in the supratentorial white matter are compatible with small vessel ischemic changes. No masses, hemorrhage, acute or chronic cortical vascular insults. Sellar/suprasellar region: No abnormalities. Craniocervical junction: Patent foramen magnum. No Chiari one malformation. Incidental findings: Atherosclerotic calcifications in the carotid siphons . Impression: No acute abnormalities. Chronic findings: 1. Mild generalized volume loss. 2. Mild supratentorial white matter small vessel ischemic changes, better visualized on MRI dated 07/09/2017. This is a preliminary report was provided by the neuroradiology fellow, Dr. Daljit Echeverria. Attending final read to follow. Signed by: Daljit Echeverria MD on 02/15/2018 4:50 PM
--- NOTE | 2018-02-15 16:59 | Diagnostic Imaging Report ---
ADDENDUM #1 Reversal of normal cervical lordosis. Mild to moderate left neural foraminal stenosis at C3-C4 and C5-C6. I have reviewed the images and agree with the findings in the preliminary report. Signed by: Dr. Astrid Conway M.D. on 02/23/2018 8:35 PM ORIGINAL REPORT Exam: Noncontrast cervical spine CT History: Left-sided numbness and right-sided head and neck pain Comparison studies: Cervical spine MRI dated 07/26/2017 Technique: Axial images were obtained through the cervical region. Coronal and sagittal images reconstructed from the axial data. Dose modulation, iterative reconstruction, and/or weight based adjustment of the mA/kV was utilized to reduce the radiation dose to as low as reasonably achievable. Intravenous contrast: None Findings: Airway: Patent. Atlantoaxial articulation: Intact Alignment: Slight reversal of the normal lumbar lordosis centered at C4, this may be partially positional. Cervicomedullary junction: No abnormalities. Patent foramen magnum. Soft tissues: No gross abnormalities. Vertebrae: No fractures, neoplasm or infection. Degenerative changes: C2-C3: Patent spinal canal and foramina . C3-4: Mild degenerative disc height loss and vacuum disc phenomena. Mild diffuse disc bulge results in mild central canal stenosis. Mild to moderate left-sided bony neural foraminal encroachment due to uncovertebral hypertrophy and minimal facet arthropathy. . C4-5: Minimal degenerative facet loss with small vacuum disc phenomena posteriorly. Prominent anterior disc osteophyte. Mild diffuse disc bulge and probable mild central canal stenosis. No significant neural foraminal encroachment. . C5-C6: Cervical ACDF of C5 and C6 with interdiscal cage and solid bony fusion. Hardware appears intact with no evidence of loosening or failure. Mild to moderate left-sided neural foraminal encroachment due to vertebral hypertrophy and facet arthropathy. C6-C7: Patent spinal canal and foramina. C7-T1: Patent spinal canal and foramina . IMPRESSION: 1. No acute injury. Ligamentous structures and canal contents are not well visualized on CT. 2. Cervical ACDF at C5-C6 appears intact without evidence of loosening. 3. Mild multilevel degenerative changes of the cervical spine without significant ([id number]) central canal stenosis. Mild to moderate right-sided bony neural foraminal encroachment at C3-4 and C5-6. This is a preliminary report was provided by the neuroradiology fellow, Dr. Daljit Echeverria. Attending over read to follow. Signed by: Daljit Echeverria MD on 02/23/2018 4:28 PM
[2018-02-15 17:00] LABS: INR 0.87; PARTIAL THROMBOPLASTIN TIME 27.9 seconds (23.8-35.5); PROTHROMBIN TIME 12.7 seconds (11.9-14.5)
[2018-02-15 17:12] LABS: ALANINE AMINOTRANSFERASE 77 IU/L (0-55); ALBUMIN 4.6 g/dL (3.5-5.0); ALBUMIN/GLOBULIN RATIO 1.5 (0.8-2.0); ALKALINE PHOSPHATASE 61 IU/L (40-150); ANION GAP 16.6 mmol/L (8-16); BLOOD UREA NITROGEN 14 mg/dL (7-26); BUN/CREATININE RATIO 14 (6-25); CALCIUM 10.5 mg/dL (8.4-10.2); CARBON DIOXIDE 27 mmol/L (22-29); CHLORIDE 98 mmol/L (98-107); CREATINE KINASE 424 IU/L (30-200); CREATININE, SERUM 0.97 mg/dL (0.72-1.25); EST GLOMERULAR FILTRATION RATE > 60 ML/MIN (60-); GLUCOSE 90 mg/dL (74-118); POTASSIUM 4.6 mmol/L (3.5-5.1); SODIUM 137 mmol/L (136-145)
--- NOTE | 2018-02-15 17:36 | Diagnostic Imaging Report ---
EXAMINATION: Chest PA and lateral views INDICATION: Pain. COMPARISON: None FINDINGS: TUBES and LINES: None. LUNGS: Lungs are well inflated. Lungs are clear. There is no evidence of pneumonia or pulmonary edema. PLEURA: No pleural effusion or pneumothorax. HEART AND MEDIASTINUM: The cardiac silhouette is mildly to moderately enlarged. Median sternotomy wires. BONES AND SOFT TISSUES: Lower cervical fusion hardware. UPPER ABDOMEN: No free air under the diaphragm. IMPRESSION: Cardiomegaly without acute decompensation. Signed by: Dr. Jelly Muhammad M.D. on 02/15/2018 5:33 PM
[2018-02-15] MEDS ORDERED: ACETAMINOPHEN/CODEINE 300MG - 30MG TAB PO ONE (18:45)
[2018-02-15] MEDS ORDERED: FAMOTIDINE 20 MG TAB PO ONE (18:45)
[2018-02-15] MEDS ORDERED: ASPIRIN 81 MG CHEW TAB PO ONE (19:30)
[2018-02-15 19:48] LABS: CREATINE KINASE MB 5.6 ng/mL (0-5.0)
[2018-02-15 20:36] VITALS: BP 144/76
[2018-02-15] MEDS ORDERED: TYLENOL WITH C1 EACH PO (20:40)
== END 2018-02-15 20:55 | disposition home or self-care (01) ==
LOC: ER 15:29
DX: M54.2 Cervicalgia (principal); R20.0 Anesthesia of skin
CPT/HCPCS: 36415; 70450; 71045; 72125; 80053; 82550; 82553; 84484; 85025; 85610; 85730; 93005; 99284

== ENCOUNTER 2021-06-04 14:43 | Emergency (ER) | payer MEDICARE ==
[~2021-06-04] VITALS: Ht 171.4 cm; Wt 86.2 kg
[~2021-06-04 14:43] MED LIST changes: +TYLENOL WITH C1 EACH PO
[2021-06-04 16:10] LABS: BASOPHILS # (AUTO) 0.1 (0.0-0.1); BASOPHILS % 0.9 % (0.0-1.0); EOSINOPHILS # (AUTO) 0.2 (0.0-0.4); EOSINOPHILS % 4.2 % (0.0-6.0); HEMATOCRIT 42.2 % (38.2-49.6); HEMOGLOBIN 14.5 g/dL (14.0-18.0); LYMPHOCYTES # (AUTO) 0.9 (1.0-3.2); LYMPHOCYTES % 16.8 % (18.0-39.1); MEAN CORPUSCULAR HEMOGLOBIN 31.7 pg (28-32); MEAN CORPUSCULAR HGB CONC 34.4 g/dL (31-35); MEAN CORPUSCULAR VOLUME 92.1 fL (81-99); MONOCYTES # (AUTO) 0.6 (0.2-0.8); MONOCYTES % 10.1 % (4.4-11.3); NEUTROPHILS # (AUTO) 3.7 (2.1-6.9); NEUTROPHILS % 67.6 % (38.7-80.0); PLATELET COUNT 118 x10e3/uL (140-360); RED BLOOD COUNT 4.58 x10e6/uL (4.3-5.7); RED CELL DISTRIBUTION WIDTH 12.7 % (11.7-14.4)
[2021-06-04 16:14] LABS: CLARITY,URINE CLEAR (CLEAR); COLOR,URINE YELLOW (YELLOW); KETONES,URINE NEGATIVE (NEGATIVE); LEUKOCYTE ESTERASE ,URINE NEGATIVE (NEGATIVE); NITRITE,URINE NEGATIVE (NEGATIVE); PROTEIN,URINE DIPSTICK NEGATIVE (NEGATIVE); URINE UROBILINOGEN 0.2 mg/dL (0.2 - 1)
[2021-06-04 16:30] LABS: ALBUMIN 4.1 g/dL (3.5-5.0); ALBUMIN/GLOBULIN RATIO 1.4 (0.8-2.0); ANION GAP 12.9 mmol/L (8-16); CALCIUM 9.9 mg/dL (8.4-10.2); CREATININE, SERUM 1.01 mg/dL (0.72-1.25); POTASSIUM 4.9 mmol/L (3.5-5.1)
== END 2021-06-04 18:18 | disposition home or self-care (01) ==
LOC: ER 14:47
DX: R10.31 Right lower quadrant pain (principal); I71.4 Abdominal aortic aneurysm, without rupture; K57.90 Diverticulosis of intestine, part unspecified, without perforation or abscess without bleeding; N28.1 Cyst of kidney, acquired
CPT/HCPCS: 36415; 74177; 80053; 81001; 83690; 84484; 85025; 99284

== ENCOUNTER 2022-12-30 16:57 | Emergency (ER) | payer MEDICARE ==
[~2022-12-30] VITALS: Ht 171.4 cm; Wt 78.5 kg
[2022-12-30] MEDS ORDERED: ACETAMINOPHEN 1000 MG/100 ML IV STA (17:38)
[2022-12-30] MEDS ORDERED: KETOROLAC TROMETHAMINE 30 MG/ML VIAL IV STA (17:38)
[2022-12-30] MEDS ORDERED: ONDANSETRON HCL INJ 2MG/ML 2ML 2 MG/ML VIAL IV STA (17:58)
[2022-12-30] MEDS ORDERED: Morphine 4mg INJECTION 4 MG/ML INJ IV STA (17:58)
[2022-12-30 18:15] LABS: BASOPHILS % 0.4 % (0.0-1.0); EOSINOPHILS # (AUTO) 0.1 (0.0-0.4); HEMATOCRIT 35.4 % (38.2-49.6); HEMOGLOBIN 12.5 g/dL (14.0-18.0); LYMPHOCYTES # (AUTO) 0.6 (1.0-3.2); MEAN CORPUSCULAR HEMOGLOBIN 30.4 pg (28-32); MEAN CORPUSCULAR HGB CONC 35.3 g/dL (31-35); MEAN CORPUSCULAR VOLUME 86.1 fL (81-99); MONOCYTES # (AUTO) 0.7 (0.2-0.8); MONOCYTES % 6.6 % (4.4-11.3); NEUTROPHILS # (AUTO) 8.7 (2.1-6.9); NEUTROPHILS % 85.7 % (38.7-80.0); PLATELET COUNT 115 x10e3/uL (140-360); RED BLOOD COUNT 4.11 x10e6/uL (4.3-5.7); RED CELL DISTRIBUTION WIDTH 12.5 % (11.7-14.4); WHITE BLOOD COUNT 10.17 x10e3/uL (4.8-10.8)
[2022-12-30] MEDS ORDERED: HYDROMORPHONE 1MG/1ML INJ IV STA ×2 (18:20→19:47)
[2022-12-30] MEDS ORDERED: LIDOCAINE HCL 1% LOCAL INJ 20 ML VIAL INJ STA (18:29)
[2022-12-30 18:34] LABS: ALBUMIN/GLOBULIN RATIO 1.8 (0.8-2.0); ANION GAP 15.6 mmol/L (8-16); BILIRUBIN,TOTAL 0.3 mg/dL (0.2-1.2); CALCIUM 8.8 mg/dL (8.4-10.2); CREATININE, SERUM 1.08 mg/dL (0.72-1.25); POTASSIUM 4.6 mmol/L (3.5-5.1); TOTAL PROTEIN 6.2 g/dL (6.5-8.1)
[2022-12-30] MEDS ORDERED: HYDROCODON-ACE1 EAC9 PO (20:02)
[2022-12-30 21:06] VITALS: BP 142/82; PULSE 75; RESP 17; TEMP 98.2; O2SAT 100
== END 2022-12-30 20:46 | disposition home or self-care (01) ==
LOC: ER 17:00
DX: S52.591A Other fractures of lower end of right radius, initial encounter for closed fracture (principal); V53.5XXA Driver of pick-up truck or van injured in collision with car, pick-up truck or van in traffic accident, initial encounter; Y92.488 Other paved roadways as the place of occurrence of the external cause; E11.65 Type 2 diabetes mellitus with hyperglycemia; E78.00 Pure hypercholesterolemia, unspecified; M54.9 Dorsalgia, unspecified; G89.29 Other chronic pain; I25.2 Old myocardial infarction; Z86.73 Personal history of transient ischemic attack (TIA), and cerebral infarction without residual deficits; Z85.828 Personal history of other malignant neoplasm of skin
CPT/HCPCS: 29125; 36415; 73080; 73110; 80053; 85025; 99283; J0131; J1170; J1885; J2405

== ENCOUNTER → 2025-01-09 | Outpatient (REF) | payer MEDICARE ==
[~2025-01-09] MED LIST changes: +ALOGLIPTIN25 MG PO; +ASPIRIN81 MG PO; +BIOTENE473 ML; +BIOTIN5000 MC2; +FINASTERIDE5 MG PO; +GLUCOSAMIN-CHO1 EACH; +HYDROCODON-ACE1 EAC9 PO; +JARDIANCE25 MG PO; +LEXAPRO20 MG PO; +LIPITOR20 MG PO; +LUTEIN6 MG; +METOPROLOL SUCC50 MG PO; +NITROGLYCERIN SPRAY; +PLAVIX75 MG PO; +TURMERIC CURCU500 MG; +VITAMIN B-121000 MC2 PO; +VITAMIN C 500500 MG; +VITAMIN D31 ML; +[UNRECOGNIZED DRUG - OTHER]
[2025-01-09 07:53] LABS: BASOPHILS % 0.5 % (0.0-1.0); EOSINOPHILS % 0.2 % (0.0-6.0); LYMPHOCYTES % 11.6 % (18.0-39.1); MONOCYTES % 8.7 % (4.4-11.3); NEUTROPHILS % 78.7 % (38.7-80.0); RED CELL DISTRIBUTION WIDTH 12.1 % (11.7-14.4)
[2025-01-09 08:14] LABS: EST GLOMERULAR FILTRATION RATE 93.0 ML/MIN (>=60)
== END ==
LOC: LAB 07:35
PROVIDERS: ATTEND Nurse Practitioner Family
DX: C71.6 Malignant neoplasm of cerebellum (principal); R11.0 Nausea; R53.83 Other fatigue
CPT/HCPCS: 36415; 80053; 82533; 85025